=== PATIENT | female | born 2000 | race Caucasian/White ===

== ENCOUNTER 2022-08-10 00:52 | Inpatient (IN) | payer BC, MEDICAID, SELFPAY ==
[2022-08-10] VITALS (54 sets, daily range): BP systolic 91–152; BP diastolic 52–104; PULSE 68–126; RESP 16–18; TEMP 35.9–36.8; O2SAT 97–99; BMI 33.5
[2022-08-10] MEDS: lactated ringers 1,000 ML 999 ML IV (01:05)
[2022-08-10 01:29] LABS: Basophils % 0.1 %; Eosinophils % 0.3 %; Hematocrit 37.6 % (37.0-47.0); Hemoglobin 12.4 g/dL (11.5-15.3); Lymphocytes # 2.4 10^3/uL (1.5-6.5); Lymphocytes % 21.2 %; Mean Corpuscular Hemoglobin 29.2 pg (28.0-34.0); Mean Corpuscular Volume 88.7 fl (81-99); Mean Platelet Volume 11.6 fL (7.4-10.4); Monocytes # 0.8 10^3/uL (0.2-0.9); Neutrophils # 7.87 10^3/uL (1.8-8.0); Nucleated Red Blood Cells % 0 %; Platelet Count 257 10^3/cmm (130-400); Red Blood Count 4.24 10^6/uL (4.1-5.3); Red Cell Distribution Width 12.4 % (12.1-15.1); White Blood Count 11.1 10^3/uL (4.5-13.0)
--- NOTE | 2022-08-10 01:57 | P.ANESASSM_ITS ---
Pre-Anesthetic Assessment Height/Weight: Height 1.52 m Weight 78.018 kg Temp Pulse BP O2 Del Method 96.6 F L 85 115/71 08/10/22 00:47 08/10/22 01:39 08/10/22 01:39 08/10/22 01:19 Preop Diagnosis: labor pain epidural Familial anesthetic complications: none Was Beta Paige taken within 24 hours: N/A Was Clonidine taken within 24 hours: N/A Social No alcohol vape Exam alert, oriented x 3, clear to auscultation bilaterally and regular rate & rhythm Airway Submandibular: within normal limits Cervical ROM: within normal limits Mallampati: Class II Dentition: full Pulmonary None reported CV/HEM None reported None reported Hepatic None reported GI None reported Metabolic None reported Musc/skel None reported Neuropsych None reported Anesthetic Plan ASA status: 2 Anesthesia: Regional (specify below) Risk of > 500 ml blood loss (7ml/kg in children): No Medications/Allergies Home Medications Medication Instructions Recorded Confirmed Last Taken Type 1 tab PO DAILY 08/10/22 08/10/22 08/08/22 History Allergies Allergy/AdvReac Type Severity Reaction Status Date / Time No Known Allergies Allergy Verified 08/10/22 01:16 Current Medications Generic Name Dose Route Start Last Admin Trade Name Freq PRN Reason Stop Dose Admin Lactated Ringer's 1,000 mls @ 999 mls/hr 08/10/22 00:53 08/10/22 01:05 Lactated Ringers IV 999 mls/hr .Q1H1M PRN Administration See label comments [facility], [facility] Anesthesia Social History (System 04/08/20 @ 11:24 by Karen Yanez) Smoking and tobacco status: current every day smoker e-cigarettes Female Reproductive History : 1 Data Anesthesia 08/10/22 01:00 Short CBC 08/10/22 Range/Units 01:00 WBC 11.1 (4.5-13.0) 10^3/uL Hgb 12.4 (11.5-15.3) g/dL Hct 37.6 (37.0-47.0) % MCV 88.7 (81-99) fl Plt Count 257 (130-400) 10^3/cmm Neut % (Auto) 71.0 % Neut # (Auto) 7.87 (1.8-8.0) 10^3/uL Cardiac Studies: No Data to Display
[2022-08-10] MEDS: dextrose 5%-lactated ringers 1,000 ML 125 ML IV ×2 (01:59→04:57)
--- NOTE | 2022-08-10 02:22 | P.ANES_ITS ---
Documented by User: Chris Lee CRNA 08/10/22 02:23 Anesthesia Procedures Procedure/Date: 08/10/22 epidural Procedure Narrative: epidural complete, bolus given, epidural pump initiated with DIRECTOR MARKETING ANALYTICS education given, vitals taken during procedure and satisfactory throughout, patient admits to decrease pain, report of procedure to OB RN Epidural: Time Out Performed: Yes Consents Signed: Procedure Consent Consent: requested by attending/covering physician, from patient, risks and benefits reviewed and patient agrees to proceed Lumbar Level: L3-L4 Epidural position: sitting Epidural procedure: sterile prep of area, 1% lidocaine to numb the area (3 mL), 18 g needle, negative for paresthesia passed, neg for paresthesia, test dose given, 1.5% xylocaine 1:200k epi (5 mL), 0.2% Ropivacaine bolus ml (5 mL), placed PCEA, no systemic response, sterile dressing applied, L.U.D. no apparent complications and 0.2% Ropiavacaine @ mls/hr (13 mL/hr) Documented by User: Nacho Coyne 08/10/22 08:09 Anesthesia Procedures Procedure/Date: 08/10/22
[2022-08-10] MEDS: oxytocin 30 UNIT/500 ML BAG 600 UNIT IV (05:39)
--- NOTE | 2022-08-10 05:51 | PM.OPHPUD ---
Labor & Delivery H&P Update Date of Procedure: August 10, 2022 Date H&P Performed: 08/05/22 Admission Diagnosis: 22-year-old 1 at 37 weeks estimated gestational age presenting with contractions and cervical dilation. Preop diagnosis: labor pain Planned procedure: Spontaneous vaginal delivery Other information: The patient is a 3 female with a due date of 27 August based on a first trimester ultrasound. She presented to the hospital with steady contractions was found to be dilated to 5 cm. She had no other concerns. Her had been unremarkable. Her labs are as follows her blood type is O+. Her antibody screen is negative. Her drug screen was negative. She passed her glucose screen. She was rubella nonimmune. Her infectious disease profile was within normal limits. She did not receive her pertussis vaccination. Her GBS status is negative.
--- NOTE | 2022-08-10 06:00 | P.PCNOB_ITS ---
Delivery Note: Date of delivery: August 10, 2022 Pre-delivery diagnoses: 22-year-old 1 female at 37 weeks estimated gestational age Post- delivery diagnoses: Status post spontaneous vaginal delivery Procedure: Spontaneous vaginal delivery Delivering Physician: Beto Del Rio Estimated blood loss (mL): 75 Pre-Delivery Course: The patient presented to the hospital in active labor. She received an epidural. She progressed to complete without difficulty. It is not clear when her membranes were ruptured. Delivery: DELIVERY: The patient progressed to complete without difficulty. She delivered a male with a weight of 5 pounds 13 ounces with Apgars of 8, 9. The baby was delivered from the JOSTIN position and placed on the mother's abdomen. The cord was then clamped and cut. There was no nuchal cord. There was no meconium. The placenta and 3 vessel cord were delivered intact shortly thereafter. The perineum and vaginal vault were carefully examined. Superficial first-degree tears were noted on the left and right vaginal wall. No repair was required. Both the mother and the baby were in stable condition. History History History 1 Term Miscarriages/Ectopic Living Children A&P Assessment and plan (1) 37 weeks gestation of : (2) Spontaneous vaginal delivery: I anticipate routine care. She plans to breast-feed. Coding Level of Care Code Acute Code for Chg Fwd Diagnoses 37 weeks gestation of Z3A.37 Spontaneous vaginal delivery O80
[2022-08-10] MEDS: lanolin oint 7 gm 1 APPLIC TOPICAL (06:41)
[2022-08-10] MEDS: benzocaine-menthol 78 gm Canister 1 SPRAY TOPICAL (06:42)
[2022-08-10] MEDS: ibuprofen 800 mg tablet PO ×2 (09:35→17:36)
[2022-08-10] MEDS: prenatal vitamin Capsule 1 CAP PO (09:35)
[2022-08-10] MEDS: docusate sodium 100 mg Capsule PO ×2 (09:35→17:36)
[2022-08-10 17:51] LABS: Hematocrit 36.8 % (37.0-47.0); Hemoglobin 12.3 g/dL (11.5-15.3); Mean Corpuscular HGB Conc 33.4 g/dL (30.0-36.0); Mean Corpuscular Hemoglobin 29.6 pg (28.0-34.0); Mean Corpuscular Volume 88.7 fl (81-99); Mean Platelet Volume 11.5 fL (7.4-10.4); Platelet Count 271 10^3/cmm (130-400); Red Blood Count 4.15 10^6/uL (4.1-5.3); Red Cell Distribution Width 12.4 % (12.1-15.1); White Blood Count 16.2 10^3/uL (4.5-13.0)
[2022-08-11 04:07] VITALS: BP 112/74; PULSE 81; RESP 18; TEMP 36.6; O2SAT 97
--- NOTE | 2022-08-11 08:10 | P.DS_ITS ---
Discharge Providers MIXER DIAMOND POWDER Date of Admission: 08/10/22 00:52 Date of Discharge: 08/11/22 Attending Provider at Admission: Beto Del Rio MD Attending Provider at Discharge: Beto Del Rio MD Primary Care Provider: [employer] Diagnoses at Discharge Discharge Diagnosis (1) 37 weeks gestation of : Status: Acute (2) Spontaneous vaginal delivery: Status: Acute Reason for Visit Reason for Visit: Possible ROM Hospital Course Hospital Course The patient presented to the hospital in active labor. Her labor was unremarkable. She had an unremarkable vaginal delivery of a healthy appearing term male. Her course is also been unremarkable. Her bleeding has been within normal limits. Her pain is not well controlled she has been breast- feeding and pumping. Currently she plans on just pumping. She has no further concerns and desires to go home. Information Peripartum Data: Delivery Method: Vaginal Physical Exam Narrative: The patient is alert. She appears comfortable. Her heart has a regular rate and rhythm with no murmurs appreciated. Lungs are clear to auscultation bilaterally. Her fundus is firm and below the umbilicus. Urinary Catheter Management: Rush Latex: Cath Placed During This Visit: yes, but has since been removed by the nurse Reason for Continuing Indwelling Catheter: Other Urinary Catheter Date of Insertion: 08/10/22 Urinary Catheter Time of Insertion: 02:59 Date Urinary Catheter Removed: 08/10/22 Time Urinary Catheter Discontinued: 05:25 History History History 1 Term Miscarriages/Ectopic Living Children Discharge Data Studies Completed and Pending Laboratory Results WBC 16.2 10^3/uL (4.5-13.0) H 08/10/22 17:45 RBC 4.15 10^6/uL (4.1-5.3) 08/10/22 17:45 Hgb 12.3 g/dL (11.5-15.3) 08/10/22 17:45 Hct 36.8 % (37.0-47.0) L 08/10/22 17:45 MCV 88.7 fl (81-99) 08/10/22 17:45 MCH 29.6 pg (28.0-34.0) 08/10/22 17:45 MCHC 33.4 g/dL (30.0-36.0) 08/10/22 17:45 RDW 12.4 % (12.1-15.1) 08/10/22 17:45 Plt Count 271 10^3/cmm (130-400) 08/10/22 17:45 MPV 11.5 fL (7.4-10.4) H 08/10/22 17:45 Neut % (Auto) 71.0 % 08/10/22 01:00 Lymph % (Auto) 21.2 % 08/10/22 01:00 [place] % (Auto) 7.0 % 08/10/22 01:00 Eos % (Auto) 0.3 % 08/10/22 01:00 Baso % (Auto) 0.1 % 08/10/22 01:00 Neut # (Auto) 7.87 10^3/uL (1.8-8.0) 08/10/22 01:00 Lymph # (Auto) 2.4 10^3/uL (1.5-6.5) 08/10/22 01:00 [place] # (Auto) 0.8 10^3/uL (0.2-0.9) 08/10/22 01:00 Eos # (Auto) 0.0 10^3/uL (0.0-0.8) 08/10/22 01:00 Baso # (Auto) 0.0 10^3/uL (0.0-0.1) 08/10/22 01:00 Nucleated RBC % (auto) 0 % 08/10/22 01:00 Nucleated RBCs # 0.0 /100WBC 08/10/22 01:00 Vitals Last Vital Signs Temp 97.8 F 08/11/22 04:07 Pulse 81 08/11/22 04:07 Resp 18 08/11/22 04:07 BP 112/74 08/11/22 04:07 Pulse Ox 97 08/11/22 04:07 O2 Del Method 08/11/22 04:07 Discharge Plan Discharge Patient Disposition: Home Condition: Stable Prescriptions: New ibuprofen 800 mg Tablet 800 mg PO TID Qty: 45 0RF Continued 1 tab PO DAILY Discharge Orders: Discharge Order (Routine); Ordered 08/11/22 Ordered By: Beto Del Rio Referrals: Beto Del Rio MD [Physician] - 6 Weeks Discharge Diet: Usual diet Discharge Activity: Limit activity as instructed Patient Instructions: Depression (DC), Bleeding (DC), Preeclampsia and Eclampsia After Delivery (GEN), OB Discharge Report, OB Anesthesia Instructions, OB Food/Drug Interaction Guide, Opioid Safety, OB Home Care, OB Proud Parent Packet, OB Vaginal Deliveries Discharge Attestations MIXER DIAMOND POWDER Time Spent in Discharge Care*: less than 30 min Coding Level of Care Code Acute Code for Chg Fwd Diagnoses 37 weeks gestation of Z3A.37 Spontaneous vaginal delivery O80
[2022-08-11] MEDS: prenatal vitamin Capsule 1 CAP PO (08:21)
[2022-08-11] MEDS: docusate sodium 100 mg Capsule PO (08:21)
[2022-08-11] MEDS: ibuprofen 800 mg tablet PO (08:21)
[2022-08-11] MEDS: measles,mumps,rubella pf Vial (w/diluent) 0.5 ML SUBCUT (11:11)
[2022-08-11 13:07] VITALS: BP 118/72; PULSE 72; RESP 15; TEMP 37; O2SAT 95
== END 2022-08-11 11:27 | disposition home or self-care (01) | DRG 807 ==
LOC: OPOB 14:36 → OBGYN 14:37
PROVIDERS: Admitting Provider Family Medicine; Visit Provider Family Medicine
DX: O70.0 First degree perineal laceration during delivery (principal); Z37.0 Single live birth; Z3A.37 37 weeks gestation of pregnancy
CPT/HCPCS: 12345; 36415; 51702; 59025; 59409; 85025; 85027; 90707; 96372; 99211; J2590; J2795; J7120; J7121

== ENCOUNTER 2023-10-26 08:46 | Inpatient (IN) | payer BC, MEDICAID, SELFPAY ==
[2023-10-26] VITALS (20 sets, daily range): BP systolic 110–133; BP diastolic 59–85; PULSE 57–119; RESP 16; TEMP 36.6–36.8; O2SAT 99; BMI 33.2
[2023-10-26 07:38] LABS: Basophils % 0.1 %; Eosinophils # 0.1 10^3/uL (0.0-0.8); Eosinophils % 0.6 %; Hematocrit 35.6 % (36-47); Lymphocytes # 2.6 10^3/uL (0.8-4.8); Lymphocytes % 22.1 %; Mean Corpuscular HGB Conc 33.4 g/dL (30-55); Mean Corpuscular Hemoglobin 29.2 pg (27-33); Mean Corpuscular Volume 87.3 fl (85-98); Mean Platelet Volume 10.6 fL (7.4-10.4); Monocytes # 0.7 10^3/uL (0.2-0.9); Neutrophils # 8.32 10^3/uL (1.8-7.7); Neutrophils % 70.9 %; Nucleated Red Blood Cells % 0 %; Platelet Count 287 10^3/cmm (157-399); Red Blood Count 4.08 10^6/uL (3.85-5.65); Red Cell Distribution Width 12.6 % (12.1-15.1); White Blood Count 11.73 10^3/uL (3.29-11.43)
[2023-10-26] MEDS: ampicillin 2,000 MG in sodium chloride 0.9% (plus) 50 ML 100 MG IV (07:40)
[2023-10-26] MEDS: lactated ringers 1,000 ML 999 ML IV (07:43)
[2023-10-26] MEDS: betamethasone susp 6 mg/mL 1 mL (per mL) 12 MG IM (07:44)
[2023-10-26 07:47] LABS: Actim Prom Positive
--- NOTE | 2023-10-26 08:12 | P.HP_ITS ---
Providers/Chief Complaint 2 Admitting Physician: Beto Del Rio Chief Complaint: Possible ROM, Contractions HPI TALENT DEVELOPMENT MANAGER History of Present Illness Maria Elena Evangelista is a 23 year old 2 para 1-0-0-1 female at 34 weeks and 6 days presenting in active labor. Her to this point had been relatively unremarkable. She had no complications and no previous problems with labor. Her lab work was unremarkable. Her blood type is O+. Her antibody screen was negative. She passed her glucose screen she is rubella nonimmune. The remainder of her infectious disease profile is within normal limits The patient arrived to the hospital having consistent contractions and demonstrating cervical change. She was placed in group B strep protocol, and given betamethasone. Because of her gestational age no tocolytics were given. Review of Systems 2 General: Reports: 10 or more systems reviewed and unremarkable except in HPI and below Const: Reports: fatigue; Denies: fever(s) Eyes: Denies: change in vision Card: Denies: chest pain Musc: Reports: back pain Herber/Lymph: Denies: easy bruising Medications/Allergies Home Medications Medication Instructions Recorded Confirmed Last Taken Type 1 tab PO DAILY 08/10/22 10/26/23 08/08/22 History ibuprofen 800 mg tablet 800 mg PO TID #45 tabs 10/28/23 Unknown Rx Allergies Allergy/AdvReac Type Severity Reaction Status Date / Time No Known Allergies Allergy Verified 08/10/22 01:16 PFSH TALENT DEVELOPMENT MANAGER 2 PFSH: Social History (System 04/08/20 @ 11:24 by Karen Yanez) Smoking and tobacco/nicotine status: current every day tobacco/nicotine user e- cigarettes History History History 2 2 Term 1 Miscarriages/Ectopic Living Children 1 Vitals/I&O/Wt Last Vital Signs Pulse 77 10/26/23 08:02 BP 110/72 10/26/23 08:02 Physical Exam 2 Const: COMMON NORMALS: patient oriented x3 and alert HENMT: COMMON NORMALS: moist oral mucous membranes HEAD & SCALP: normal to inspection Chest: COMMONS NORMALS: normal inspection of the chest Resp: COMMON NORMALS: clear to auscultation bilaterally AUSCULTATION: clear to auscultation bilaterally Cardio: COMMON NORMALS: regular rate and regular rhythm RATE: regular rate RHYTHM: regular rhythm GI: INSPECTION: Yes normal to inspection and Yes other (Gravid) Extremity: COMMON NORMALS: normal to inspection GENERAL: Yes edema (Trace) Neuro: COMMON NORMALS: patient oriented x3, moves all extremities and no sensory deficits noted SENSORIUM/ORIENTATION: Yes alert Psych: COMMON NORMALS: mental status grossly normal Skin: COMMON NORMALS: no rashes or lesions noted GENERAL SKIN EXAM: no rashes or lesions noted Data 10/26/23 20:49 Results Labs OB ([facility]): 2 Hct 35.2 % (36-47) L 10/26/23 Hgb 12.00 g/dL (11.27-16.99) 10/26/23 Plt Count 343 10^3/cmm (157-399) 10/26/23 VZV IgG Antibody 972.50 index 11/04/21 A&P Assessment and plan (1) 34 weeks gestation of : We discussed options with the patient. Given that she is 5 cm dilated 80% effaced as a 2 bob consistently shipping the patient at this time would be difficult. I did discuss the options with the patient including trying to see if we can get her prescription versus delivering here. She and her decided they wanted to try and deliver here. We discussed the fact that the baby will be and that depending on how it does it will likely need to be shipped to [place]. They expressed understanding and have no further questions. (2) premature rupture of membranes: (3) Active labor: Attestations 2 Medical Necessity Statement*: Routine labor and course is expected. Coding Level of Care Code Acute Code for Chg Fwd Diagnoses 34 weeks gestation of Z3A.34 premature rupture of membranes O42.919 Active labor O60.00
[2023-10-26] MEDS: oxytocin 30 UNIT/500 ML BAG 600 UNIT IV (08:49)
--- NOTE | 2023-10-26 08:51 | PM.DELIVERY ---
Delivery Note: Date of delivery: October 26, 2023 Pre-delivery diagnoses: 23-year-old 2 para 1-0-0-1 at 34 weeks and 6 days presenting with premature rupture of membranes and active labor Post-delivery diagnoses: Status post precipitous delivery Procedure: Spontaneous precipitous vaginal delivery Delivering Physician: Beto Del Rio Estimated blood loss (mL): 50 Pre-Delivery Course: The patient presented to the hospital with spontaneous rupture of membranes that occurred just prior to arrival this morning at around 6:00. She was placed on GBS protocol. She was given betamethasone x 1. The mother then rapidly progressed to complete Delivery: DELIVERY: The patient progressed to complete without difficulty. She delivered a female with a weight of 5 pounds 6 ounces with Apgars of 8, 9. The baby was delivered from the JOSTIN position. The cord was then clamped and cut. There was no nuchal cord. There was no meconium. The placenta and 3 vessel cord were delivered intact shortly thereafter. The perineum and vaginal vault were carefully examined. No lacerations were noted. Both the mother and the baby were in stable condition. Post-Delivery Status: Good History History History 2 Term 1 Miscarriages/Ectopic Living Children 1 A&P Assessment and plan (1) premature rupture of membranes: (2) 34 weeks gestation of : (3) Spontaneous vaginal delivery: I anticipate routine care. Coding Level of Care Code Acute Code for Chg Fwd Diagnoses premature rupture of membranes O42.919 34 weeks gestation of Z3A.34 Spontaneous vaginal delivery O80
--- NOTE | 2023-10-26 10:01 | PC.NURSE ---
Sam Gordon RN called Eliane on 10/26/23 @0822 to let him know pt was now 6cm 90 percent effaced, and +1 station. He gave orders to get her an epidural. This nurse went to set up an epidural pump and at that time which was 0837 this nurse performed a SVE due to pt feeling more pressure and pushy. Pt was noted to be complete +2. Eliane was called by Aurora Ernst RN at this time to come in for delivery. Pt was involuntarily pushing, and head was delivered at 0837, at this time Sam Gordon RN checked for a nuchal and none was noted. Pt was then instructed by Sam Gordon RN to push and Infant body was delivered. was placed on mothers chest and stimulated by Sam Gordon and Aurora Ernst RN. Cord was clamped by Aurora Ernst RN, and Father of baby cut cord. Infant was then taken to Alka Miramontes RN over to warmer. Dr. Del Rio arrived to pt room at 0840 where he delivered placenta @0842 and checked for lacerations.
[2023-10-26] MEDS: PRENATAL VIT NO.130/IRON/FOLIC 1 EACH TABLET PO (10:20)
[2023-10-26] MEDS: docusate sodium 100 mg Capsule PO ×2 (10:20→21:08)
[2023-10-26] MEDS: ibuprofen 800 mg tablet PO ×3 (10:20→21:08)
[2023-10-26] MEDS: lanolin oint 7 gm 1 APPLIC TOPICAL (12:39)
[2023-10-26 21:07] LABS: Hematocrit 35.2 % (36-47); Mean Corpuscular HGB Conc 34.1 g/dL (30-55); Mean Corpuscular Hemoglobin 29.6 pg (27-33); Mean Corpuscular Volume 86.9 fl (85-98); Mean Platelet Volume 10.9 fL (7.4-10.4); Platelet Count 343 10^3/cmm (157-399); Red Blood Count 4.05 10^6/uL (3.85-5.65); Red Cell Distribution Width 12.5 % (12.1-15.1); White Blood Count 19.29 10^3/uL (3.29-11.43)
[2023-10-27 02:30] VITALS: BP 93/58; PULSE 64; RESP 16; TEMP 36.4
--- NOTE | 2023-10-27 07:19 | P.PN_ITS ---
WELDING TECHNICIAN Subjective 2 Subjective: Interval history: The patient is doing well overall. She has had some clots but overall her bleeding has been within normal limits. Breast-feeding has been going better than expected given the baby's gestational age. She is concerned this morning that she is not producing enough colostrum. She feels like she is pumping less now than when to be was first born. Labor: Station: +2 Amniotic Membrane Status: Ruptured Monitor Mode: External Contraction Pattern: Regular Vitals/I&O/Wt Last Vital Signs Temp 97.6 F 10/27/23 02:30 Pulse 64 10/27/23 02:30 Resp 16 10/27/23 02:30 BP 93/58 10/27/23 02:30 Pulse Ox 99 10/26/23 18:00 O2 Del Method Room Air 10/26/23 18:00 Weight last 48 hrs Weight 170 lb Physical Exam 2 Narrative: The patient is alert. She appears comfortable. Her heart has a regular rate and rhythm with no murmurs appreciated. Lungs are clear to auscultation bilaterally. Her fundus is firm and below the umbilicus. Data 10/26/23 20:49 A&P Assessment and plan (1) 34 weeks gestation of : I anticipate routine care. She will require some assistance with breast-feeding. (2) Spontaneous vaginal delivery: Attestations 2 Medical Necessity Statement*: Routine care. She will require another night in the hospital to assist her with breast-feeding of her premature infant. Coding Level of Care Code Acute Code for Chg Fwd Diagnoses 34 weeks gestation of Z3A.34 Spontaneous vaginal delivery O80
[2023-10-27] MEDS: PRENATAL VIT NO.130/IRON/FOLIC 1 EACH TABLET PO (09:41)
[2023-10-27] MEDS: docusate sodium 100 mg Capsule PO ×2 (09:41→20:04)
[2023-10-27] MEDS: ibuprofen 800 mg tablet PO ×3 (09:41→20:03)
[2023-10-27 11:12] VITALS: BP 95/62; PULSE 69; RESP 15; TEMP 36.6; O2SAT 98
[2023-10-27 16:35] VITALS: BP 131/74; PULSE 64; RESP 14; TEMP 36.6; O2SAT 98
[2023-10-27 20:06] VITALS: BP 126/77; PULSE 66; RESP 16; TEMP 36.5; O2SAT 97
[2023-10-28 04:00] VITALS: BP 112/82; PULSE 52; RESP 16; TEMP 36.4
--- NOTE | 2023-10-28 08:27 | P.DS_ITS ---
Discharge Providers PROFESSIONAL SERVICES MANAGER Date of Admission: 10/26/23 08:46 Date of Discharge: 10/28/23 Attending Provider at Admission: Beto Del Rio MD Attending Provider at Discharge: Beto Del Rio MD Diagnoses at Discharge Discharge Diagnosis (1) 34 weeks gestation of : Status: Acute (2) Spontaneous vaginal delivery: Status: Acute Reason for Visit Reason for Visit: Possible ROM, Contractions Hospital Course Hospital Course The patient arrived to the hospital complaining of contractions. She was noted to be making cervical change was placed on group B strep protocol. She was given betamethasone. She then quickly progressed to complete and had a baby within several hours. Her course was unremarkable. Her bleeding was within normal limits. Her pain was well-controlled. She did have a brief time when she was having difficulty getting adequate colostrum. But that resolved and she has been doing well breast-feeding and pumping since then. Information Peripartum Data: Delivery Method: Vaginal Physical Exam Narrative: The patient is alert. She appears comfortable. Her heart has a regular rate and rhythm with no murmurs appreciated. Lungs are clear to auscultation bilaterally. Her fundus is firm and below the umbilicus. History History History 2 Term 1 Miscarriages/Ectopic Living Children 1 Discharge Data Studies Completed and Pending Laboratory Results WBC 19.29 10^3/uL (3.29-11.43) H 10/26/23 20:49 RBC 4.05 10^6/uL (3.85-5.65) 10/26/23 20:49 Hgb 12.00 g/dL (11.27-16.99) 10/26/23 20:49 Hct 35.2 % (36-47) L 10/26/23 20:49 MCV 86.9 fl (85-98) 10/26/23 20:49 MCH 29.6 pg (27-33) 10/26/23 20:49 MCHC 34.1 g/dL (30-55) 10/26/23 20:49 RDW 12.5 % (12.1-15.1) 10/26/23 20:49 Plt Count 343 10^3/cmm (157-399) 10/26/23 20:49 MPV 10.9 fL (7.4-10.4) H 10/26/23 20:49 Neut % (Auto) 70.9 % 10/26/23 07:20 Lymph % (Auto) 22.1 % 10/26/23 07:20 [place] % (Auto) 6.0 % 10/26/23 07:20 Eos % (Auto) 0.6 % 10/26/23 07:20 Baso % (Auto) 0.1 % 10/26/23 07:20 Neut # (Auto) 8.32 10^3/uL (1.8-7.7) H 10/26/23 07:20 Lymph # (Auto) 2.6 10^3/uL (0.8-4.8) 10/26/23 07:20 [place] # (Auto) 0.7 10^3/uL (0.2-0.9) 10/26/23 07:20 Eos # (Auto) 0.1 10^3/uL (0.0-0.8) 10/26/23 07:20 Baso # (Auto) 0.0 10^3/uL (0.0-0.1) 10/26/23 07:20 Nucleated RBC % (auto) 0 % 10/26/23 07:20 Nucleated RBCs # 0.0 /100WBC 10/26/23 07:20 Insulin-like GF I Positive 10/26/23 07:02 Vitals Last Vital Signs Temp 97.6 F 10/28/23 04:00 Pulse 52 L 10/28/23 04:00 Resp 16 10/28/23 04:00 BP 112/82 10/28/23 04:00 Pulse Ox 97 10/27/23 20:06 O2 Del Method Room Air 10/27/23 20:06 Results Labs OB ([facility]): Hct 35.2 % (36-47) L 10/26/23 Hgb 12.00 g/dL (11.27-16.99) 10/26/23 Plt Count 343 10^3/cmm (157-399) 10/26/23 VZV IgG Antibody 972.50 index 11/04/21 Discharge Plan Discharge Patient Disposition: Home Condition: Stable Prescriptions: New ibuprofen 800 mg Tablet 800 mg PO TID Qty: 45 0RF Continued 1 tab PO DAILY Discharge Orders: Discharge Order (Routine); Ordered 10/28/23 Ordered By: Beto Del Rio Referrals: Beto Del Rio MD [Physician] - Discharge Diet: Usual diet Discharge Activity: Limit activity as instructed Patient Instructions: Depression (DC), Preeclampsia and Eclampsia After Delivery (GEN), Hemorrhage (DC), OB Discharge Report, OB Food/Drug Interaction Guide, OB Care at Home, Opioid Safety, OB Vaginal Deliveries, Abnormal Bleeding Discharge Attestations PROFESSIONAL SERVICES MANAGER Time Spent in Discharge Care*: less than 30 min Coding Level of Care Code Acute Code for Chg Fwd Diagnoses 34 weeks gestation of Z3A.34 Spontaneous vaginal delivery O80
[2023-10-28 10:01] VITALS: BP 118/80; PULSE 80; RESP 16; TEMP 36.9; O2SAT 98
== END 2023-10-28 10:06 | disposition home or self-care (01) | DRG 807 ==
LOC: OPOB 08:48 → OBGYN 08:48
PROVIDERS: Admitting Provider Family Medicine; Visit Provider Family Medicine
DX: O60.14X0 Preterm labor third trimester with preterm delivery third trimester, not applicable or unspecified (principal); Z37.0 Single live birth; Z3A.34 34 weeks gestation of pregnancy; O99.333 Smoking (tobacco) complicating pregnancy, third trimester
CPT/HCPCS: 36415; 59409; 84112; 85025; 85027; 96372; J0290; J0702; J2590; J7120; J9999